=== PATIENT | male | born 1990 | race African-American/Black ===

== ENCOUNTER 2021-06-11 22:27 | Emergency (ER) | payer OTHER, MEDICAID ==
[~2021-06-11] VITALS: Ht 180.3 cm; Wt 93.6 kg
[2021-06-11] MEDS ORDERED: NALOXONE 0.4 MG/ML VIAL. ONE (22:30)
[2021-06-11] MEDS ORDERED: EPINEPHrine SYRINGE 1 MG/10 ML SYRINGE. ONE (22:30)
[2021-06-11] MEDS ORDERED: SODIUM BICARB ADULT 8.4% 50 MEQ/50 ML DISP.SYRIN. ONE (22:30)
[2021-06-11 22:49] VITALS: BP 0/0
--- NOTE | 2021-06-11 23:00 | PHYS DOC ---
General Adult EDM: Chief Complaint: CPR/FULL ARREST HPI: HPI: Pt. 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 Pt. arrives in full arrest. Pt. reportedly was asystole and guards started CPR 2139. Paramedics arrived at 2145 still asystolic and CPR continued. Pt. has 5 rounds of EPI 1mg with CPR. IO placed Lt Tibia. Pt. had no no return of spontaneous respirations or pulse in route to the hospital. Patient arrived asystole with compressor and bag ventilation. Patient is a 30 year old male prisoner who presents with an cardiopulmonary arrest from [facility]. Patient received 3 rounds of epinephrine, 1 amp bicarb and 1 Narcan 4mg. No return to spontaneous respiration or pulse. Remained in asystole on monitor. Code was called at 2238. Review of Systems: Review of Systems: Unavailable due to cardiopulmonary arrest and lack of history assisted guards Family History: Family History: Not currently available Current Medications: Current Meds: See nursing fo assisted meds Allergies: Allergies: No known drug allergies Physical Exam: PE: Constitutional: in appearance HENT: Normocephalic, atraumatic, bilateral external ears normal, oropharynx blood, no oral exudates, nose normal. ' P' tattoo on forehead Eyes: Fixed dilated Neck: Trachea appeared midline Cardiovascular: Asystole Lungs & Thorax: Coarse breath sounds more on the right. Abdomen: Bowel sounds decreased mild distention Skin: Tattoos with peripheral cyanosis Back: No obvious wound Extremities: No obvious injury. IO left tib.. Neurologic: Non responsive EKG: EKG: [] Radiology/Procedures: Radiology/Procedures: [] Heart Score: C/O Chest Pain: N/A Risk Factors: Risk Factors: DM, Current or recent (<one month) smoker, HTN, HLP, family history of CAD, obesity. Risk Scores: Score 0 - 3: 2.5% MACE over next 6 weeks - Discharge Home Score 4 - 6: 20.3% MACE over next 6 weeks - Admit for Clinical Observation Score 7 - 10: 72.7% MACE over next 6 weeks - Early Invasive Strategies Course & Med Decision Making: Course & Med Decision Making Pertinent Labs and Imaging studies reviewed. (See chart for details) Further details see code sheet. Impression: Cardiopulmonary arrest Code called 2238 Hrs. [] David Disclaimer: David Disclaimer: This electronic medical record was generated, in whole or in part, using a voice recognition dictation system. Departure Departure: Referrals: PCP,NO (PCP) David Disclaimer This chart was dictated in whole or in part using Voice Recognition software in a busy, high-work load, and often noisy Emergency Department environment. It may contain unintended and wholly unrecognized errors or omissions. Dragon Disclaimer This chart was dictated in whole or in part using Voice Recognition software in a busy, high-work load, and often noisy Emergency Department environment. It may contain unintended and wholly unrecognized errors or omissions. RICHIE RODRIGUEZ MD Jun 11, 2021 23:00
== END 2021-06-12 01:41 ==
LOC: ER 22:30
DX: I46.9 Cardiac arrest, cause unspecified (principal)
CPT/HCPCS: 92950; 99285; J0171; J2310; 82947